=== PATIENT | female | born 1980 | race Caucasian/White ===

== ENCOUNTER 2016-11-05 06:30 | Emergency (ER) | payer OTHER ==
[2016-11-05 07:56] LABS: BASOPHIL 0.5 % (0-2); EOSINOPHIL 0.9 % (0-5); HCT 39.3 % (37.0-47.0); HGB 12.8 g/dl (12.5-16.0); LYMPHOCYTE 22.3 % (15-48); MCH 28.3 pg (25.0-31.0); MCHC 32.6 g/dL (32.0-36.0); MCV 86.9 fL (78.0-100.0); MONOCYTE 11.4 % (0-12); NEUTROPHIL 64.9 % (41-80); PLT 295 K/uL (150-400); RBC 4.52 M/uL (4.20-5.40); RDW 14.3 % (11.5-14.0); WBC 6.4 K/uL (4.0-10.5)
[2016-11-05 08:05] LABS: CREATININE 0.7 mg/dL (0.5-1.0); POTASSIUM 3.9 mmol/L (3.5-5.1)
== END 2016-11-05 09:42 | disposition home or self-care (01) ==
LOC: FER 06:30
PROVIDERS: Internal Medicine
DX: J45.901 Unspecified asthma with (acute) exacerbation (principal); F17.200 Nicotine dependence, unspecified, uncomplicated; Z79.51 Long term (current) use of inhaled steroids
CPT/HCPCS: 36415; 71020; 80048; 85025; 93005; 94640